=== PATIENT | male | born 1960 | race Caucasian/White ===

== ENCOUNTER 2019-10-13 13:52 | Emergency (ER) | payer SELFPAY ==
--- OUTSIDE RECORDS SUMMARY | 2019-10-13 13:54 | XMS REPORT | Continuity of Care Document ---
:1960 Author Organization [facility] t Address [address] [place] [address] Care Team Providers Name Role Phone Doctor Unassigned, Name Attending Clinician Unavailable Problems This patient has no known problems. Allergies, Adverse Reactions, Alerts This patient has no known allergies or adverse reactions. Medications This patient has no known medications. Procedures This patient has no known procedures. Encounters Start End Encounter Admission Attending Care Care Encounter Source Date/Time Date/Time Type Type Clinicians Facility Department ID 2019-01-06 2019-01-06 Orders Doctor JOSEFINA [id number] 00:00:00 00:00:00 Only UnassELIJAH [facility] [id number] [place] [facility] [id number] Results This patient has no known results.
[2019-10-13] MEDS ORDERED: dexAMETHasone 10 MG/ML VIAL ONE (14:29)
[2019-10-13] MEDS ORDERED: NA CHLORIDE 0.9% 1,000 ML ONE (14:29)
[2019-10-13 14:42] LABS: Absolute Lymphocytes (CBC) 1.5 K/uL (0.7-4.9); Basophils % 0.5 % (0-1.3); Hematocrit 43.4 % (39.6-49.0); Lymphocytes % 22.7 % (15.3-44.8); MPV 8.1 fL (7.6-11.3); RBC Red Blood Cell Count 4.51 M/uL (4.33-5.43)
[2019-10-13 14:43] LABS: Protime INR 0.95
[2019-10-13] MEDS ORDERED: PROMETHAZINE INJ 25 MG/ML AMP ONE (15:08)
[2019-10-13 15:15] LABS: ALT/SGPT 30 U/L (12-78); AST/SGOT 23 U/L (15-37); Alkaline Phosphatase 109 U/L (45-117); BUN Blood Urea Nitrogen 17 mg/dL (7-18); Bicarbonate 24 mmol/L (21-32); Bilirubin Direct 0.1 mg/dL (0-0.2); Bilirubin Total 0.4 mg/dL (0.2-1.0); Glucose Level 128 mg/dL (74-106); Magnesium 2.2 mg/dL (1.8-2.4); NT PRO-BNP 67 pg/mL (<125); Potassium 3.7 mmol/L (3.5-5.1); Protein, Total 7.7 g/dL (6.4-8.2); Sodium Level 142 mmol/L (136-145); Troponin (Emerg Dept Use Only) < 0.02 ng/mL (0.0-0.045)
--- NOTE | 2019-10-13 16:27 | EKG ---
Test Date: 2019-10-13 Test Time: 14:34:28 Sales Consultant: DAVID MEASUREMENT RESULTS: Intervals: Rate: 108 MN: 144 QRSD: 82 QT: 326 QTc: 436 [place]: P: 67 MN: 144 QRS: 84 T: 16 INTERPRETIVE STATEMENTS: Sinus tachycardia Otherwise normal ECG No previous ECG available for comparison Electronically Signed On 10-13-19 16:27:18 CDT by Wes Fisher
--- NOTE | 2019-10-13 16:48 | ER ---
Nurse's Notes [facility] Name: Florentino Matute Age: 59 yrs Sex: Male : 1960 Arrival Date: 10/13/2019 Time: 13:53 Bed 15 Private MD: Diagnosis: Hymenoptra Envenomation;Bitten or stung by nonvenomous insect and other nonvenomous arthropods Presentation: 10/12 14:00 Chief complaint: Patient states: was mowing grass and got stung by a lot of bees all sv over. Reports that he fell mx times trying to get away from the. Coronavirus screen: Proceed with normal triage. Patient denies a cough. Patient denies shortness of breath or difficulty breathing. Patient denies measured and/or subjective temperature greater than 100.4F prior to today's visit. Patient denies travel on a cruise ship or to a country the [facility] currently lists as an affected area. Patient denies contact with known and/or suspected case of COVID-19. Ebola Screen: No symptoms or risks identified at this time. Onset: The symptoms/episode began/occurred suddenly, today. Anaphylaxis evaluation, no signs or symptoms of anaphylaxis were noted. Risk Assessment: Do you want to hurt yourself or someone else? Patient reports no desire to harm self or others. Onset of symptoms was October 13, 2019. 14:00 Method Of Arrival: Wheelchair sv 14:00 Acuity: SAMUEL 2 sv Triage Assessment: 14:02 General: Appears in no apparent distress. uncomfortable, Behavior is cooperative, sv anxious. Pain: Complains of pain in "all over". Neuro: Level of Consciousness is awake, alert, obeys commands, Oriented to person, place, time, situation. Respiratory: Airway is patent Respiratory effort is even, unlabored, Respiratory pattern is tachypnea. Historical: - Allergies: 14:02 No Known Allergies; sv Screenin:25 Abuse screen: Denies threats or abuse. Denies injuries from another. Nutritional bp screening: No deficits noted. Tuberculosis screening: No symptoms or risk factors identified. Fall Risk None identified. Assessment: 14:10 General: SEE TRIAGE NOTE. Respiratory: Airway is patent Breath sounds are clear bp bilaterally. 15:57 Reassessment: Patient appears in no apparent distress at this time. PT SLEEPING. bp Respiratory: Airway is patent. 16:49 Reassessment: PT SLEEPING. Respiratory: Airway is patent Respiratory effort is even, bp unlabored. Vital Signs: 14:00 BP 143 / 100; Pulse 116; Resp 22; Pulse Ox 99% ; sv 14:30 BP 129 / 94; Pulse 108; Resp 16; Pulse Ox 97% ; bp 15:30 BP 171 / 101; Pulse 100; Resp 20; Pulse Ox 100% ; bp 16:30 BP 137 / 87; Pulse 101; Resp 16; Pulse Ox 97% ; bp ED Course: 13:53 Patient arrived in ED. as 13:57 Dejan Humphries, RN is Primary Nurse. bp 14:00 Shalom Mosquera PA is PHCP. [facility] 14:00 Indra Powell MD is Attending Physician. [facility] 14:02 Triage completed. sv 14:02 Arm band placed on. sv 14:25 Patient has correct armband on for positive identification. Bed in low position. Call bp light in reach. Side rails up X2. 14:25 Inserted saline lock: 20 gauge in right forearm, using aseptic technique. Blood bp collected. 15:08 Verbal reassurance given. mb4 Administered Medications: 14:25 Drug: NS 0.9% 1000 ml Route: IV; Rate: 1 bolus; Site: right forearm; bp 14:25 Drug: Decadron - Dexamethasone 10 mg Route: IVP; Site: right forearm; bp 15:03 Drug: Promethazine 12.5 mg Route: IVP; Site: right forearm; ca1 Outcome: 16:47 Discharge ordered by MD. [facility] 17:22 Patient left the ED. aa5 Signatures: Libby Rossi RN RN Shalom Mosquera PA PA Sari Cali Audri, RN RN aa5 Dejan Humphries, RN RN bp Claudia Carver mb4 Jayla Jiménez RN RN ca1
--- NOTE | 2019-10-13 16:48 | EDPHYS ---
Physician Documentation [facility] Name: Florentino Matute Age: 59 yrs Sex: Male : 1960 Arrival Date: 10/13/2019 Time: 13:53 Bed 15 Private MD: ED Physician Indra Powell HPI: 10/12 14:10 This 59 yrs old Male presents to ER via Wheelchair with complaints of Bee jmm Sting. 14:10 by a bee. Onset: The symptoms/episode began/occurred acutely, just prior to arrival. jmm This is a 59 year old male that presents to the ED with complaints of multiple bee stings while mowing a lawn. Denies shortness of breath. Pain is mainly at the head. Denies vomiting. . Historical: - Allergies: 14:02 No Known Allergies; sv ROS: 14:10 Constitutional: Negative for fever, chills, and weight loss, Cardiovascular: Negative [facility] for chest pain, palpitations, and edema, Respiratory: Negative for shortness of breath, cough, wheezing, and pleuritic chest pain, Abdomen/GI: Negative for abdominal pain, nausea, vomiting, diarrhea, and constipation. 14:10 Skin: Positive for insect sting. 14:10 All other systems are negative. Exam: 14:10 Constitutional: This is a well developed, well nourished patient who is awake, alert, jmm and in no acute distress. 14:10 Eyes: EOMI, no conjunctival erythema appreciated ENT: Moist Mucus Membranes Neck: Trachea midline, Supple Chest/axilla: Normal chest wall appearance and motion. Cardiovascular: Regular rate and rhythm. No edema appreciated Respiratory: Normal respirations, no respiratory distress appreciated Abdomen/GI: Non distended, soft Back: Normal ROM Skin: General appearance color normal MS/ Extremity: Moves all extremities, no obvious deformities appreciated, no edema noted to the lower extremities Neuro: Awake and alert, normal gait Psych: Behavior is normal, Mood is normal, Patient is cooperative and pleasant 14:10 Head/face: multiple insect bites noted to the face. 16:45 ECG was reviewed by the Attending Physician. An electrocardiogram was deferred on this [facility] patient Vital Signs: 14:00 BP 143 / 100; Pulse 116; Resp 22; Pulse Ox 99% ; sv 14:30 BP 129 / 94; Pulse 108; Resp 16; Pulse Ox 97% ; bp 15:30 BP 171 / 101; Pulse 100; Resp 20; Pulse Ox 100% ; bp 16:30 BP 137 / 87; Pulse 101; Resp 16; Pulse Ox 97% ; bp MDM: 14:11 Patient medically screened. [facility] 16:46 Data reviewed: vital signs, nurses notes. Counseling: I had a detailed discussion with sheldon the patient and/or guardian regarding: the historical points, exam findings, and any diagnostic results supporting the discharge/admit diagnosis, lab results, radiology results, the need for outpatient follow up, to return to the emergency department if symptoms worsen or persist or if there are any questions or concerns that arise at home. ED course: Patient is alert and non toxic in appearance in the ED. Patient advised to follow up with pcp and otherwise given wound infection return precautions. Patient understood and agrees with the plan of care. . 10/12 14:10 Order name: Basic Metabolic Panel; Complete Time: 15:16 [facility] 10/12 14:10 Order name: CBC with Diff; Complete Time: 14:52 [facility] 10/12 14:10 Order name: LFT's; Complete Time: 15:16 [facility] 10/12 14:10 Order name: Magnesium; Complete Time: 15:16 [facility] 10/12 14:10 Order name: NT PRO-BNP; Complete Time: 15:16 [facility] 10/12 14:10 Order name: PT-INR; Complete Time: 14:52 [facility] 10/12 14:10 Order name: Troponin (emerg Dept Use Only); Complete Time: 15:16 [facility] 10/12 14:10 Order name: EKG; Complete Time: 14:11 [facility] 10/12 14:10 Order name: Cardiac monitoring; Complete Time: 14:24 [facility] 10/12 14:10 Order name: EKG - Nurse/Tech; Complete Time: 14:31 [facility] 10/12 14:10 Order name: IV Saline Lock; Complete Time: 14:24 [facility] 10/12 14:10 Order name: Labs collected and sent; Complete Time: 14:24 [facility] 10/12 14:10 Order name: O2 Per Protocol; Complete Time: 14:24 [facility] 10/12 14:10 Order name: O2 Sat Monitoring; Complete Time: 14:24 [facility] 10/12 14:31 Order name: Wound Care; Complete Time: 16:50 [facility] EC:45 Rate is 108 beats/min. Rhythm is regular. QRS [place] is Normal. DC interval is normal. [facility] QRS interval is normal. QT interval is normal. No Q waves. T waves are Normal. No ST changes noted. Reviewed by me. Administered Medications: 14:25 Drug: NS 0.9% 1000 ml Route: IV; Rate: 1 bolus; Site: right forearm; bp 14:25 Drug: Decadron - Dexamethasone 10 mg Route: IVP; Site: right forearm; bp 15:03 Drug: Promethazine 12.5 mg Route: IVP; Site: right forearm; ca1 Disposition: 10/13 09:09 Co-signature as Attending Physician, Indra Powell MD I agree with the assessment and kdr plan of care. Disposition: 10/13/19 16:47 Discharged to Home. Impression: Hymenoptra Envenomation, Bitten or stung by nonvenomous insect and other nonvenomous arthropods. - Condition is Stable. - Discharge Instructions: Insect Bite. - Medication Reconciliation Form, Thank You Letter, Antibiotic Education, Prescription Opioid Use form. - Follow up: Private Physician; When: 2 - 3 days; Reason: Recheck today's complaints, Continuance of care, Re-evaluation by your physician. Signatures: Dispatcher [employer] Libby York RN Indra Galdamez MD MD kdr Mickail, Joel, PA PA [facility] Kaylene Joseph RN RN aa5 Dejan Humphries RN RN bp Jayla Jiménez RN RN ca1 Corrections: (The following items were deleted from the chart) 10/12 17:22 16:47 10/13/2019 16:47 Discharged to Home. Impression: Hymenoptra Envenomation; Bitten aa5 or stung by nonvenomous insect and other nonvenomous arthropods. Condition is Stable. Forms are Medication Reconciliation Form, Thank You Letter, Antibiotic Education, Prescription Opioid Use. Follow up: Private Physician; When: 2 - 3 days; Reason: Recheck today's complaints, Continuance of care, Re-evaluation by your physician. [facility]
[2019-10-13 17:34] VITALS: BP 137/87; O2SAT 97
== END 2019-10-13 17:22 | disposition home or self-care (01) ==
LOC: ER 13:52
DX: S00.86XA Insect bite (nonvenomous) of other part of head, initial encounter (principal); T63.441A Toxic effect of venom of bees, accidental (unintentional), initial encounter
CPT/HCPCS: 36415; 80048; 80076; 83735; 83880; 84484; 85025; 85610; 93005; 96374; 96375; 99283; J1100; J2550; J7030

== ENCOUNTER 2021-04-16 07:21 | Day surgery (SDC) | payer OTHER ==
[2021-04-11 14:53] LABS: Potassium 3.9 mmol/L (3.5-5.1)
[2021-04-16] MEDS ORDERED: CEFAZOLIN/SWI 2gm 2 GM/20 ML SYR ONE (07:36)
[2021-04-16] MEDS ORDERED: Ringers Lactate 1,000 ML IV ONE ×2 (07:36→09:58)
[2021-04-16] MEDS ORDERED: BUPIVACA 0.5%/EPI 0.0005%/PF 30 ML VIAL ONE (07:59)
[2021-04-16] MEDS ORDERED: ACETAMINOPHEN 500 MG TAB PO ONE (08:10)
[2021-04-16] MEDS ORDERED: CELECOXIB 100 MG CAPSULE PO ONE (08:10)
[2021-04-16] MEDS ORDERED: ACETAMINOPHEN 500 MG TAB ONE (08:11)
[2021-04-16] MEDS ORDERED: CELECOXIB 100 MG CAPSULE ONE (08:11)
[2021-04-16] MEDS ORDERED: LIDOCAINE 1% MPF 5 ML VIAL ONE (08:21)
[2021-04-16] MEDS ORDERED: propofoL 200 MG/20 ML VIAL IV ONE (08:21)
[2021-04-16] MEDS ORDERED: FENTANYL CITR 100 MCG/2 ML ONE (08:21)
[2021-04-16] MEDS ORDERED: MIDAZOLAM HCL 2 MG/2 ML INJ ONE (08:21)
[2021-04-16] MEDS ORDERED: KETOROLAC 30 MG/ML INJ ONE (08:58)
[2021-04-16] MEDS ORDERED: ONDANSETRON 4 MG/2 ML VIAL ONE (08:58)
--- NOTE | 2021-04-16 09:50 | P.OP ---
Preoperative diagnosis: Left recurrent inguinal hernia Postoperative diagnosis: LEFT varicocele Primary procedure: LEFT inguinal exploration Anesthesia: GETA + Local Estimated blood loss: <5cc Specimen: none Findings: Very Large LEFT Vericocele, no hernia defect appreciated Complications: None Transferred to: Recovery Room Condition: Good
[2021-04-16 10:02] VITALS: O2SAT 100
[2021-04-16 10:58] VITALS: BP 133/71; TEMP 97.8
--- NOTE | 2021-04-16 11:06 | OP ---
Date of Procedure: 04/16/2021 Surgeon: Taiwo Montez MD, Preoperative Diagnosis: Left recurrent inguinal hernia. Postoperative Diagnosis: Left varicocele / hydrocele. Procedure Performed: Left inguinal exploration. Anesthesia: General endotracheal plus local with 0.25% Marcaine without epinephrine. Estimated Blood Loss: Less than 5 mL. Specimen: None. Findings: Very large left varicocele hernia defect appreciated. Complications: None. Disposition: The patient was transferred to the recovery room in good condition. Procedure In Detail: After informed consent was obtained, the patient was brought to the operating room prepped and draped in the usual sterile fashion. After adequate anesthesia was achieved, I dissected circumferentially down to the previous inguinal incision down to subcutaneous tissues. Electrocautery was used to dissect down this to the external oblique aponeurosis, which was opened at this point. No hernia was appreciated at this point, but a large varicocele / hydrocele was evident from the scrotum. This appeared to be abutting the inguinal ring, but there was no obvious hernia appreciated on this examination. As such, I opted to close the patient's inguinal incision and irrigate the area copiously. The external oblique aponeurosis was closed with a running 3-0 Vicryl suture and this deep dermal plane was closed using interrupted 3-0 Vicryl suture. The skin was closed with 4-0 Monocryl in running fashion Dermabond placed over top. The patient tolerated the procedure well without evidence of complication and transferred to PACU in good condition. All counts were correct at the end of the case. The patient will be referred to urologist for varicocele repair. GEORGETTE/LIAN Voice ID: [id number] Report ID: [id number] TREE
== END 2021-04-16 11:35 | disposition home or self-care (01) ==
LOC: OR 07:21
PROVIDERS: ATTEND Surgery
PROC: 0WJF0ZZ Inspection of Abdominal Wall, Open Approach (ICD-10-PCS; principal; 2021-04-16 08:30)
DX: N43.3 Hydrocele, unspecified (principal); I86.1 Scrotal varices; Z20.822 Contact with and (suspected) exposure to COVID-19
CPT/HCPCS: 80048; 36415; 49000; U0002; J2704; J2250; J3010; J0690; J7120 ×2; J2405

== ENCOUNTER 2023-04-02 08:01 | Day surgery (SDC) | payer OTHER ==
[~2023-04-02 08:01] MED LIST: PIPER TAZO 3.375 GM in NA CHLORIDE 0.9% 100 ML IV ONE
[2023-04-02] MEDS ORDERED: PIPER TAZO 3.375 GM in NA CHLORIDE 0.9% 100 ML IV ONE (08:15)
[2023-04-02 08:23] VITALS: BP 153/97; TEMP 97.2; O2SAT 100; BMI 22.9
== END 2023-04-02 12:26 | disposition home or self-care (01) ==
LOC: DS 08:01
PROVIDERS: ATTEND Urology
DX: N39.0 Urinary tract infection, site not specified (principal); R97.20 Elevated prostate specific antigen [PSA]
CPT/HCPCS: 96365; 96366; J2543

== ENCOUNTER 2023-04-09 10:54 | Emergency (ER) | payer OTHER ==
--- OUTSIDE RECORDS SUMMARY | 2023-04-09 10:58 | XMS REPORT | Continuity of Care Document ---
:1960 Author Organization [facility] t Address [address] [facility] [place] [address] Care Team Providers Name Role Phone Pcp, Patient Does Not Have A Primary Care Physician [id number] Gaudencio Lamb Attending Clinician Unavailable FELIX THOMAS Attending Clinician Unavailable Felix Thomas MD Attending Clinician Doctor Unassigned, [place] Attending Clinician Unavailable Yessi Hawley MD Attending Clinician YESSI HAWLEY Attending Clinician Unavailable Payers Payer Name Policy Type Policy Number Effective Date Expiration Date [place] [facility] [place] [id number] 2022 00:00:00 [employer] MEDICARE C1 [id number] 2021 Common Sp sanjeev 00:00:00 - [facility] Problems Condition Condition Condition Status Onset Resolution Last Treating Co mments Source Name Details Category Date Date Treatment Clinician Date Non-recurr Non-recurr Disease Active 2018-05 Overview : Univers ent ent 06-02 Formattin ity of unilateral unilateral 00:00: g of this [place] inguinal inguinal 00 note Medica l hernia hernia might be Branch without without different obstructio obstructio from the n or n or original. gangrene gangrene Added automatic ally from request for surgery [id number] Screening Screening Disease Active 2018-05 Overview: Univers for for 05-22 Formattin ity of colorectal colorectal 00:00: g of this [place] cancer cancer note Medical might be Branch different from the original. Added automatic ally from request for surgery [id number] Chronic Chronic Disease Active Univers pain of pain of 6-28 ity of right hip right hip 00:00: Ben salguero [address] [place] [address] [id number] Hypertrigl Problem Co mmon yceridemia [facility] [id number] Enlarged Problem Comm on prostate [facility] Hernia Hernia Problem Common [facility] [id number] Chronic Problem Common obstructiv [facility] e [facility] pulmonary [facility] unspecifie Medica l d COPD Center type [id number] Elevated Problem Comm on PSA [facility] [id number] Scrotal Problem Commo n swelling [facility] [id number] Tobacco Problem Commo n use Spirit disorder, [facility] continuous [facility] [id number] Primary Problem Comm on osteoarthr Spirit itis of [facility] right hip [facility] [id number] Penile Problem Common lesion [facility] [id number] BPH loc w Problem Com mon urin [facility] obs/LUTS [facility] [id number] Chronic Problem Common prostatiti Spirit s [facility] [id number] Left Problem Commo n [id number] inguinal [facility] pain [facility] Scrotal Scrotal Problem Common pain pain [facility] [id number] Left Problem Common hydrocele [facility] Allergies, Adverse Reactions, Alerts Allergy Allergy Status Severity Reaction(s) Onset Inactive Treating Comm ents Source Name Type Date Date Clinician NO KNOWN Drug Active Univers ALLERGIE Class [facility] Social History Social Habit Start Date Stop Date Quantity Comments Source History of Tobacco Current Smoker Co mmon Spirit - Use [facility] Sex Assigned At Common Sp sanjeev - [facility] History [facility] University o f Alcohol Frequency [facility] History [facility] University o f Alcohol Std Drinks [facility] Sexual orientation Univer [facility] Alcohol intake 2023-04-08 2023-04-08 1 /d University of 00:00:00 00:00:00 [facility] History of Social 2019-12-16 2019-12-16 Univers ity of function 00:00:00 00:00:00 [facility] Tobacco use and 2019-04-23 2019-04-23 Smokeless tobacco Un iversity of exposure 00:00:00 00:00:00 non-user [facility] Tobacco Comment 2019-04-23 2019-04-23 Attempting to cut Un iversity of 00:00:00 00:00:00 down. 10-15 [place] Medical cigarettes/day Branch Cigarettes smoked 2019-04-23 2019-04-23 Univers ity of current (pack per 00:00:00 00:00:00 [facility] ) - Reported Branch History SDOH 2019-03-25 2019-03-25 4 University o f Alcohol Binge 00:00:00 00:00:00 [facility] al Branch Alcohol Comment 2018-07-02 2018-07-02 6 beers/week, Univer sity of 00:00:00 00:00:00 says he quit in [place] Med ical apr 2018 Branch Smoking Status Start Date Stop Date Source Current Smoker 2023-01-27 00:00:00 Common Spiri t - [facility] Occasional tobacco smoker 2019-04-23 00:00:00 Un iversity of [facility] Medications Ordered Filled Start Stop Current Ordering Indication Dosage Frequency Signature Comments Components Source Medication Medication Date Date Medication? Clinician (SIG) Name Name tamsulosin 2023-0 Yes Univers 0.4 mg 24 9-24 ity of hr capsule 00:00: [place] [facility] tamsulosin 2023-0 Yes Univers 0.4 mg 24 9-24 ity of hr capsule 00:00: [place] [facility] tamsulosin 2023-0 Yes Univers 0.4 mg 24 9-24 ity of hr capsule 00:00: [place] [facility] tamsulosin 2023-0 Yes Univers 0.4 mg 24 9-24 ity of hr capsule 00:00: [place] [facility] tamsulosin 2023-0 Yes Univers 0.4 mg 24 9-24 ity of hr capsule 00:00: [place] [facility] tamsulosin 2023-0 Yes Univers 0.4 mg 24 9-24 ity of hr capsule 00:00: [place] [facility] tamsulosin 2023-0 Yes Univers 0.4 mg 24 9-24 ity of hr capsule 00:00: Medical Branch tamsulosin 3-0 Yes Univers 0.4 mg 24 02-02 ity of hr capsule 00:00: Medical Branch tamsulosin 3-0 Yes Univers 0.4 mg 24 02-02 ity of hr capsule 00:00: Medical Branch Flomax 0.4 Flomax 0.4 2021-0 2022- No 1{capsu QD Flomax 0.4 MG MG 05-2310 le} MG 00:00: 00:00 00 :00 Flomax 0.4 Flomax 0.4 2021-0 2- No 1{capsu QD Flomax 0.4 MG MG 05-2310 le} MG 00:00: 00:00 00 :00 Flomax 0.4 Flomax 0.4 2021-0 2- No 1{capsu QD MG MG 05-2310 le} 00:00: 00:00 00 :00 Flomax 0.4 Flomax 0.4 2021-0 2- No 1{capsu QD Flomax 0.4 MG MG 05-2310 le} MG 00:00: 00:00 00 :00 Bactrim DS Bactrim DS 2021-0 2021- No 1{table BID 800-160 MG 800-160 MG 05-23 t} 00:00: 00:00 00 :00 acetaminoph 2018-05 Yes [id number] 500mg Take 1 Univers en (TYLENOL 2-17 tablet by ity of EXTRA 00:00: mouth [place] STRENGTH) 00 every 6 Medical 500 mg (six) Branch tablet hours as needed for Pain. ibuprofen 2018-05 Yes [id number] 600mg Take 1 Univers 600 mg 2-17 tablet by ity of tablet 00:00: mouth [place] 00 every 6 Medical (six) Branch hours as needed for Pain (scale 4-6). traMADol 50 2018-05 Yes [id number] 50mg Take 1 Univers mg tablet 2-17 tablet by ity o f 00:00: mouth [place] 00 every 6 Medical (six) Branch hours as needed for Pain (scale 4-6). acetaminoph 2018-05 Yes [id number] 500mg Take 1 Univers en (TYLENOL 2-17 tablet by ity of EXTRA 00:00: mouth [place] STRENGTH) 00 every 6 Medical 500 mg (six) Branch tablet hours as needed for Pain. ibuprofen 2018-05 Yes [id number] 600mg Take 1 Univers 600 mg 2-17 tablet by ity of tablet 00:00: mouth [place] 00 every 6 Medical (six) Branch hours as needed for Pain (scale 4-6). traMADol 50 2018-05 Yes [id number] 50mg Take 1 Univers mg tablet 2-17 tablet by ity o f 00:00: mouth [place] 00 every 6 Medical (six) Branch hours as needed for Pain (scale 4-6). acetaminoph 2018-05 Yes [id number] 500mg Take 1 Univers en (TYLENOL 2-17 tablet by ity of EXTRA 00:00: mouth [place] STRENGTH) 00 every 6 Medical 500 mg (six) Branch tablet hours as needed for Pain. ibuprofen 2018-05 Yes [id number] 600mg Take 1 Univers 600 mg 2-17 tablet by ity of tablet 00:00: mouth [place] 00 every 6 Medical (six) Branch hours as needed for Pain (scale 4-6). traMADol 50 2018-05 Yes [id number] 50mg Take 1 Univers mg tablet 2-17 tablet by ity o f 00:00: mouth [place] 00 every 6 Medical (six) Branch hours as needed for Pain (scale 4-6). acetaminoph 2018-05 Yes [id number] 500mg Take 1 Univers en (TYLENOL 2-17 tablet by ity of EXTRA 00:00: mouth [place] STRENGTH) 00 every 6 Medical 500 mg (six) Branch tablet hours as needed for Pain. ibuprofen 2018-05 Yes [id number] 600mg Take 1 Univers 600 mg 2-17 tablet by ity of tablet 00:00: mouth [place] 00 every 6 Medical (six) Branch hours as needed for Pain (scale 4-6). traMADol 50 2018-05 Yes [id number] 50mg Take 1 Univers mg tablet 2-17 tablet by ity o f 00:00: mouth [place] 00 every 6 Medical (six) Branch hours as needed for Pain (scale 4-6). acetaminoph 2018-05 Yes [id number] 500mg Take 1 Univers en (TYLENOL 2-17 tablet by ity of EXTRA 00:00: mouth [place] STRENGTH) 00 every 6 Medical 500 mg (six) Branch tablet hours as needed for Pain. ibuprofen 2018-05 Yes [id number] 600mg Take 1 Univers 600 mg 2-17 tablet by ity of tablet 00:00: mouth [place] 00 every 6 Medical (six) Branch hours as needed for Pain (scale 4-6). traMADol 50 2018-05 Yes [id number] 50mg Take 1 Univers mg tablet 2-17 tablet by ity o f 00:00: mouth [place] 00 every 6 Medical (six) Branch hours as needed for Pain (scale 4-6). acetaminoph 2018-05 Yes [id number] 500mg Take 1 Univers en (TYLENOL 2-17 tablet by ity of EXTRA 00:00: mouth [place] STRENGTH) 00 every 6 Medical 500 mg (six) Branch tablet hours as needed for Pain. ibuprofen 2018-05 Yes [id number] 600mg Take 1 Univers 600 mg 2-17 tablet by ity of tablet 00:00: mouth [place] 00 every 6 Medical (six) Branch hours as needed for Pain (scale 4-6). traMADol 50 2018-05 Yes [id number] 50mg Take 1 Univers mg tablet 2-17 tablet by ity o f 00:00: mouth [place] 00 every 6 Medical (six) Branch hours as needed for Pain (scale 4-6). acetaminoph 2018-05 Yes [id number] 500mg Take 1 Univers en (TYLENOL 2-17 tablet by ity of EXTRA 00:00: mouth [place] STRENGTH) 00 every 6 Medical 500 mg (six) Branch tablet hours as needed for Pain. ibuprofen 2018-05 Yes [id number] 600mg Take 1 Univers 600 mg 2-17 tablet by ity of tablet 00:00: mouth [place] 00 every 6 Medical (six) Branch hours as needed for Pain (scale 4-6). traMADol 50 2018-05 Yes [id number] 50mg Take 1 Univers mg tablet 2-17 tablet by ity o f 00:00: mouth [place] 00 every 6 Medical (six) Branch hours as needed for Pain (scale 4-6). acetaminoph 2018-05 Yes [id number] 500mg Take 1 Univers en (TYLENOL 2-17 tablet by ity of EXTRA 00:00: mouth [place] STRENGTH) 00 every 6 Medical 500 mg (six) Branch tablet hours as needed for Pain. ibuprofen 2018-05 Yes [id number] 600mg Take 1 Univers 600 mg 2-17 tablet by ity of tablet 00:00: mouth [place] 00 every 6 Medical (six) Branch hours as needed for Pain (scale 4-6). traMADol 50 2018-05 Yes [id number] 50mg Take 1 Univers mg tablet 2-17 tablet by ity o f 00:00: mouth [place] 00 every 6 Medical (six) Branch hours as needed for Pain (scale 4-6). acetaminoph 2018-05 Yes [id number] 500mg Take 1 Univers en (TYLENOL 2-17 tablet by ity of EXTRA 00:00: mouth [place] STRENGTH) 00 every 6 Medical 500 mg (six) Branch tablet hours as needed for Pain. ibuprofen 2018-05 Yes [id number] 600mg Take 1 Univers 600 mg 2-17 tablet by ity of tablet 00:00: mouth [place] 00 every 6 Medical (six) Branch hours as needed for Pain (scale 4-6). traMADol 50 2018-05 Yes [id number] 50mg Take 1 Univers mg tablet 2-17 tablet by ity o f 00:00: mouth [place] 00 every 6 Medical (six) Branch hours as needed for Pain (scale 4-6). acetaminoph 2018-05 Yes [id number] 500mg Take 1 Univers en (TYLENOL 2-17 tablet by ity of EXTRA 00:00: mouth [place] STRENGTH) 00 every 6 Medical 500 mg (six) Branch tablet hours as needed for Pain. ibuprofen 2018-05 Yes [id number] 600mg Take 1 Univers 600 mg 2-17 tablet by ity of tablet 00:00: mouth [place] 00 every 6 Medical (six) Branch hours as needed for Pain (scale 4-6). traMADol 50 2018-05 Yes [id number] 50mg Take 1 Univers mg tablet 2-17 tablet by ity o f 00:00: mouth [place] 00 every 6 Medical (six) Branch hours as needed for Pain (scale 4-6). acetaminoph 2018-05 Yes [id number] 500mg Take 1 Univers en (TYLENOL 2-17 tablet by ity of EXTRA 00:00: mouth [place] STRENGTH) 00 every 6 Medical 500 mg (six) Branch tablet hours as needed for Pain. ibuprofen 2018-05 Yes [id number] 600mg Take 1 Univers 600 mg 2-17 tablet by ity of tablet 00:00: mouth [place] 00 every 6 Medical (six) Branch hours as needed for Pain (scale 4-6). traMADol 50 2018-05 Yes [id number] 50mg Take 1 Univers mg tablet 2-17 tablet by ity o f 00:00: mouth [place] 00 every 6 Medical (six) Branch hours as needed for Pain (scale 4-6). acetaminoph 2019-0 Yes 500mg Take 500 U nivers en (TYLENOL 2-21 mg by ity of EXTRA 15:24: mouth [place] STRENGTH) 21 every 6 Medical 500 mg (six) Branch tablet hours as needed for Pain. Vitamin D2 Vitamin D2 No Vitamin D2 Sulfamethox Sulfamethox No 1{table QD Sulfametho azole-Trime azole-Trime t} xazole-Tri thoprim thoprim methoprim 400-80 MG 400-80 MG 400-80 MG Vitamin C Vitamin C No Vitamin C Tylenol 325 Tylenol 325 No 1{table 6xD Tylenol MG MG t_as_ne 325 MG eded} Vitamin D2 Vitamin D2 No Vitamin D2 Sulfamethox Sulfamethox No 1{table QD Sulfametho azole-Trime azole-Trime t} xazole-Tri thoprim thoprim methoprim 400-80 MG 400-80 MG 400-80 MG Vitamin C Vitamin C No Vitamin C Tylenol 325 Tylenol 325 No 1{table 6xD Tylenol MG MG t_as_ne 325 MG eded} Vitamin C Vitamin C No Vitamin C Tylenol 325 Tylenol 325 No 1{table 6xD Tylenol MG MG t_as_ne 325 MG eded} Vitamin D2 Vitamin D2 No Vitamin D2 Sulfamethox Sulfamethox No 1{table QD Sulfametho azole-Trime azole-Trime t} xazole-Tri thoprim thoprim methoprim 400-80 MG 400-80 MG 400-80 MG Flomax 0.4 Flomax 0.4 No 1{capsu BID Flomax 0.4 MG MG le} MG Tylenol 325 Tylenol 325 No 1{table 6xD Tylenol MG MG t_as_ne 325 MG eded} Vitamin C Vitamin C No Vitamin C Vitamin D2 Vitamin D2 No Vitamin D2 Vitamin C Vitamin C No Vitamin C Vitamin D2 Vitamin D2 No Tylenol 325 Tylenol 325 No 1{table 6xD MG MG t_as_ne eded} Vitamin C Vitamin C No Vitamin D2 Vitamin D2 No Vitamin D2 Sulfamethox Sulfamethox No 1{table QD Sulfametho azole-Trime azole-Trime t} xazole-Tri thoprim thoprim methoprim 400-80 MG 400-80 MG 400-80 MG Vitamin C Vitamin C No Vitamin C Tylenol 325 Tylenol 325 No 1{table 6xD Tylenol MG MG t_as_ne 325 MG eded} Immunizations Ordered Filled Immunization Date Status Comments Sour e Immunization Name Name Boostrix (Tdap) Boostrix (Tdap) 2021-06-18 Completed Comm on Spirit 15:32:00 [facility] Pneumovax (PPSV23) Pneumovax (PPSV23) 2021-06-18 Completed Common [facility] 15:32:00 [facility] Boostrix (Tdap) Boostrix (Tdap) 2021-06-18 Completed Comm on [facility] 15:32:00 [facility] Pneumovax (PPSV23) Pneumovax (PPSV23) 2021-06-18 Completed Common [facility] 15:32:00 [facility] Boostrix (Tdap) Boostrix (Tdap) 2021-06-18 Completed Comm on [facility] 15:32:00 [facility] Pneumovax (PPSV23) Pneumovax (PPSV23) 2021-06-18 Completed Common [facility] 15:32:00 [facility] Boostrix (Tdap) Boostrix (Tdap) 2021-06-18 Completed Comm on [facility] 15:32:00 [facility] Pneumovax (PPSV23) Pneumovax (PPSV23) 2021-06-18 Completed Common [facility] 15:32:00 - [facility] Afluria Afluria 2021-02-14 Completed Common [facility] 14:24:00 [facility] Afluria Afluria 2021-02-14 Completed Common [facility] 14:24:00 [facility] Afluria Afluria 2021-02-14 Completed Common [facility] 14:24:00 [facility] Afluria Afluria 2021-02-14 Completed Common [facility] 14:24:00 [facility] Afluria Afluria 2021-02-14 Completed Common [facility] 14:24:00 [facility] Afluria Afluria 2021-02-14 Completed Common [facility] 14:24:00 [facility] Afluria Afluria Unknown Completed Common [facility] - [facility] Boostrix (Tdap) Boostrix (Tdap) Unknown Completed Comm on [facility] Pneumovax (PPSV23) Pneumovax (PPSV23) Unknown Completed Common [facility] Vital Signs Vital Name Observation Time Observation Value Comments Source Systolic blood 2023-04-08 18:59:00 127 mm[Hg] Univer sity of pressure [facility] Diastolic blood 2023-04-08 18:59:00 78 mm[Hg] Unive rsity of pressure [facility] Heart rate 2023-04-08 18:59:00 81 /min Universi ty of [place] [facility] [place] Body temperature 2023-04-08 18:59:00 37.22 [place] Univ ersity of [facility] Respiratory rate 2023-04-08 18:59:00 18 /min Univ ersity of [place] [facility] [place] Oxygen saturation in 2023-04-08 18:59:00 99 /min [facility] Arterial blood by [facility] Pulse oximetry Branch Body height 2023-04-08 18:57:00 165.1 cm Universi ty of [place] [facility] Body weight 2023-04-08 18:57:00 63.504 kg Universi ty of [place] [facility] BMI 2023-04-08 18:57:00 23.30 kg/m2 Universi ty of [place] [facility] Systolic blood 2023-02-03 18:14:00 133 mm[Hg] Univer sity of pressure [facility] Diastolic blood 2023-02-03 18:14:00 83 mm[Hg] Unive rsity of pressure [facility] Heart rate 2023-02-03 18:14:00 86 /min Universi ty of [place] [facility] Body temperature 2023-02-03 18:14:00 36.78 [place] Univ ersity of [place] [facility] Respiratory rate 2023-02-03 18:14:00 18 /min Univ ersity of [place] [facility] Body height 2023-02-03 18:14:00 165.1 cm Universi ty of [place] [facility] Body weight 2023-02-03 18:14:00 61.236 kg Universi ty of [place] [facility] BMI 2023-02-03 18:14:00 22.47 kg/m2 Universi ty of [place] [facility] Oxygen saturation in 2023-02-03 18:14:00 98 /min University of Arterial blood by [facility] Pulse oximetry Branch weight 2021-06-18 15:10:00 142.3 [lb_av] Common [facility] temperature 2021-06-18 15:10:00 98.4 [degF] Common [facility] bmi 2021-06-18 15:10:00 23.68 kg/m2 Common [facility] oximetry 2021-06-18 15:10:00 98 % [facility] respiratory rate 2021-06-18 15:10:00 18 /min Comm on [facility] blood pressure 2021-06-18 15:10:00 132 mm[Hg] Common [facility] - systolic [facility] blood pressure 2021-06-18 15:10:00 75 mm[Hg] Common [facility] - diastolic [facility] height 2021-06-18 15:10:00 65 [in_i] Common [facility] height 2021-05-23 17:15:00 65 [in_i] Common [facility] weight 2021-05-23 17:15:00 140.8 [lb_av] Common [facility] temperature 2021-05-23 17:15:00 98.7 [degF] [facility] bmi 2021-05-23 17:15:00 23.43 kg/m2 Common [facility] oximetry 2021-05-23 17:15:00 99 % Common [facility] respiratory rate 2021-05-23 17:15:00 18 /min Comm on [facility] blood pressure 2021-05-23 17:15:00 132 mm[Hg] Common [facility] - systolic [facility] blood pressure 2021-05-23 17:15:00 68 mm[Hg] Common [facility] - diastolic [facility] height 2021-02-14 13:30:00 65 [in_i] Common [facility] weight 2021-02-14 13:30:00 144.6 [lb_av] Common [facility] temperature 2021-02-14 13:30:00 97.6 [degF] Common [facility] bmi 2021-02-14 13:30:00 24.06 kg/m2 Common [facility] oximetry 2021-02-14 13:30:00 97 % Common [facility] respiratory rate 2021-02-14 13:30:00 17 /min Comm on [facility] blood pressure 2021-02-14 13:30:00 134 mm[Hg] Common [facility] systolic [facility] blood pressure 2021-02-14 13:30:00 67 mm[Hg] Common [facility] diastolic [facility] Procedures Procedure Date / Time Performing Clinician Source Performed SARAI,POST-VOID 2023-04-08 00:00:00 Felix Thomas [place] o f [place] RES,US,NON-IMAGING Medical Bran h POCT URINALYSIS AUTO 2023-04-08 00:00:00 Felix Thomas [facility] Medical Branch EXTERNAL PROVIDER RECORDS 2023-02-10 05:01:00 Doctor Andrea, [facility] [place] [facility] REFERRAL- 2023-01-30 05:01:00 Doctor Unassallen, [facility] REQUEST/RESPONSE [place] [facility] REFERRAL- 2021-04-18 06:01:00 Doctor Andrea, [facility] REQUEST/RESPONSE [place] [facility] OP CORRESPONDENCE 2019-01-06 05:01:00 [facility] [place] [facility] Encounters Start End Encounter Admission Attending Care Care Encounter Source Date/Time Date/Time Type Type Clinicians Facility Department ID 2023-02-18 Outpatient Lamb, STLMLC STLC [id number] Common 13:27:00 [facility] [address] [facility] 2022-12-25 Outpatient Lamb, STLMLC STLMLC [id number] Common 11:09:00 [facility] [address] [facility] 2022-12-23 Outpatient Lamb, STLMLC STLMLC [id number] Common 14:04:00 Gaudencio [address] [facility] 2022-11-04 Outpatient Lamb, STLMLC STLMLC [id number] Common 09:08:01 Gaudencio [address]5783 [facility] 2022-10-31 Outpatient Lamb, STLMLC STLC [id number] Common 08:40:01 Gaudencio 84473 [facility] 2022-09-05 Outpatient Lamb, STLMLC STLMLC [id number] Common 13:59:00 Gaudencio [address] [facility] 2022-08-05 Outpatient Lamb, STLMLC STLMLC [id number] Common 10:11:02 Gaudencio [address]2857 [facility] 2021-09-18 Outpatient Lamb, STLMLC STLC [id number] Common 15:39:02 Gaudencio [facility] 2021-07-16 Outpatient Lamb, STLMLC STLC [id number] Common 16:26:01 Gaudencio [facility] 2021-06-06 Outpatient Lamb, STLMLC STLC [id number] Common 14:34:45 Gaudencio [facility] 2021-06-06 Outpatient Lamb, STLMLC STLC [id number] Common 14:07:44 Gaudencio 375[address] [facility] 2021-06-06 Outpatient Lamb, STLMLC STLMLC [id number] Common 13:59:32 Gaudencio 19451 [facility] 2021-06-06 Outpatient Lamb, STLMLC STLC [id number] Common 13:58:12 Gaudencio [facility] 2021-06-06 Outpatient Lamb, STLMLC STLC [id number] Common 13:57:44 Gaudencio 311[address] [facility] 2023-04-08 2023-04-08 Outpatient R MARTHA, [facility] [id number] Univers 13:00:00 13:36:45 FELIX king [facility] 2023-04-08 2023-04-08 Office [facility] [id number] Univers 13:00:00 13:36:45 Visit Felix TARIQ [id number] it y of [place] [id number] [facility] 204 Branch 2023-02-10 2023-02-10 Orders Doctor ROCHA [id number] Univers 00:00:00 00:00:00 Only Unassigned, ELIJAH [id number] ity of [place] [facility] [id number] [place] as [id number] [facility] 009 Branch 2023-02-10 2023-02-10 Telephone [facility] [id number] Univers 00:00:00 00:00:00 Yessi CABRERA [id number] i ty of [place] [id number] [place] [address] 2023-02-06 2023-02-06 Telephone [facility] [id number] Univers 00:00:00 00:00:00 Yessi CABRERA [id number] i ty of [place] [id number] [place] [address] 2023-02-03 2023-02-03 Outpatient R [facility] [id number] Univers 13:00:00 13:40:43 YESSI christine of [facility] 2023-02-03 2023-02-03 Office [facility] [id number] Univers 13:00:00 13:40:43 Visit Yessi CABRERA [id number] i ty [facility] [id number] [id number] [place] dical NAL [address] [place] [id number] 2023-01-30 2023-01-30 Orders Doctor ROCHA [id number] [employer] 00:00:00 00:00:00 Only Unassigned, ELIJAH [id number] ity of [place] [facility] [id number] [place] as [phone] [place] [address] [address] 2022-07-26 2022-07-26 (TEL) STLMLC STLMLC [id number] Co mmon 00:00:00 00:00:00 [facility] 2021-09-26 2021-09-26 (TEL) STLMLC STLMLC [id number] Co mmon 00:00:00 00:00:00 [facility] 2021-06-26 2021-06-26 (TEL) STLMLC STLMLC [id number] Co mmon 00:00:00 00:00:00 [facility] 2021-06-18 2021-06-18 PREV VISIT STLMLC STLMLC [id number] Common 00:00:00 00:00:00 EST AGE [facility] 40-64 - [facility] 2021-05-23 2021-05-23 OFFICE STLMLC STLMLC [id number] Co mmon 00:00:00 00:00:00 VISIT NEW Spir it PT LEVEL 5 - [facility] 2021-04-25 2021-04-25 (TEL) STLMLC STLMLC [id number] Co mmon 00:00:00 00:00:00 [facility] 2021-04-18 2021-04-18 Orders Doctor JOSEFINA [id number] [place] [address] 00:00:00 00:00:00 Only Unassigned, ELIJAH [id number] ity of [place] [facility] 4.2.7.2.686 [place] [phone] [place] [address] [address] 2021-02-14 2021-02-14 OFFICE STLMLC STLMLC [id number] Co mmon 00:00:00 00:00:00 VISIT NEW Spir it PT LEVEL 3 - [facility] 2019-01-06 2019-01-06 Orders Doctor JOSEFINA [id number] 00:00:00 00:00:00 Only Unassigned, ELIJAH [id number] [place] [facility] [id number] [phone] [id number] 2019-01-06 2019-01-06 Orders Doctor JOSEFINA [id number] 00:00:00 00:00:00 Only Unassigned, ELIJAH 350.1.13.10 ity of [place] [facility] [id number] [place] as [phone] [facility] [address] Results Test Description Test Time Test Comments Results Result Comments Source POCT URINALYSIS, INSTRUMENT 2023-04-08 19:05:00 Test Item Value Reference Range Interpretation Comme nts POCT U SP GRAV (test code = 3255) 1.025 mg/dl 1.005-1.025 POCT PH U (test code = 3254) 6.0 mg/dl 5-8 POCT U LEUK EST (test code = 3263) trace Negative - Negative POCT U NIT (test code = 3262) negative Negative - Negative POCT U PROT (test code = 3259) negative Negative - Negative POCT U GLU (test code = 3256) negative Negative - Negative POCT U KETONE (test code = 3258) negative Negative - Negative POCT U UROBILI (test code = 3260) 0.2 mg/dl 0.2-1 POCT U BILI (test code = 3261) negative Negative - Negative POCT U BLD (test code = 3257) trace-intact Negative - Negative POCT U COLOR (test code = 3266) yellow POCT U APPEAR (test code = 3267) clear [facility] URINALYSIS, [id number] 19:05:00 Test Item Value Reference Range Interpretation Comments POCT U SP GRAV (test code = 1.025 mg/dl 1.005-1.025 3255) POCT PH U (test code = 3254) 6.0 mg/dl 5-8 POCT U LEUK EST (test code = trace Negative - Negative 3263) POCT U NIT (test code = negative Negative - Negative 3262) POCT U PROT (test code = negative Negative - Negative 3259) POCT U GLU (test code = negative Negative - Negative 3256) POCT U KETONE (test code = negative Negative - Negative 3258) POCT U UROBILI (test code = 0.2 mg/dl 0.2-1 3260) POCT U BILI (test code = negative Negative - Negative 3261) POCT U BLD (test code = trace-intact Negative - Negative 3257) POCT U COLOR (test code = yellow 3266) POCT U APPEAR (test code = clear 3267) [facility],POST-VOID RES,US,[id number] 00:00:00 Test Item Value Reference Range Interpretation Comments PVR (URINE VOLUME) (test code = 5193) 0 ml 0-100 [facility],POST-VOID RES,US,[id number] 00:00:00 Test Item Value Reference Range Interpretation Comments PVR (URINE VOLUME) (test code = 5193) 0 ml 0-100 [facility] LDL/HDL [id number] 00:00:00 Test Item Value Reference Range Interpretation Comments Cholesterol, Total (test code = 2093-3) 177 100-199 Triglycerides (test code = 2571-8) 269 0-149 HDL Cholesterol (test code = 2085-9) 53 >39 Hepatitis Panel (4)2021-06-18 00:00:00 Test Item Value Reference Range Interpretation Comments Hep A Ab, IgM (test code = 43729-4) Negative Negative HBsAg Screen (test code = 5196-1) Negative Negative Hep B Core Ab, IgM (test code = Negative Negative 86105-1) UA/M w/rflx Culture, [id number] 00:00:00 Test Item Value Reference Range Interpretation Comments Specific [place] (test code = 1.022 1.005-1.030 2965-2) pH (test code = 5803-2) 5.5 5.0-7.5 Urine-Color (test code = 5778-6) Yellow Yellow Appearance (test code = 5767-9) Clear Clear WBC Esterase (test code = 5799-2) Negative Negative Protein (test code = 42250-2) Negative Negative/Trace Glucose (test code = 2349-9) Negative Negative Ketones (test code = 2514-8) Negative Negative Occult Blood (test code = 5794-3) Negative Negative Bilirubin (test code = 5770-3) Negative Negative Urobilinogen,Semi-Qn (test code = 0.2 0.2-1.0 63508-4) Nitrite, Urine (test code = Negative Negative 5802-4) Microscopic Examination (test code See below: = 52576-8) Urinalysis Reflex (test code = UNLOINC) Prostate-Specific Ag, [id number] 00:00:00 Test Item Value Reference Range Interpretation Comments Prostate Specific Ag (test code = 3.1 0.0-4.0 2857-1) Hemoglobin [id number] 00:00:00 Test Item Value Reference Range Interpretation Comments Hemoglobin A1c (test code = 4548-4) 5.4 4.8-5.6 Comp. Metabolic Panel (14) (CMP)2021-06-18 00:00:00 Test Item Value Reference Range Interpretation Comments Glucose (test code = 2345-7) 88 65-99 BUN (test code = 3094-0) 17 6-24 Creatinine (test code = 2160-0) 1.10 0.76-1.27 eGFR If NonAfricn Am (test code = 73 >59 74344-8) eGFR If Africn Am (test code = 40181-1) 84 >59 BUN/Creatinine Ratio (test code = 15 9-20 3097-3) Sodium (test code = 2951-2) 139 134-144 Potassium (test code = 2823-3) 5.2 3.5-5.2 Chloride (test code = 2075-0) 104 96-106 Carbon Dioxide, Total (test code = 25 -2027-) Calcium (test code = 64185-2) 9.5 8.7-10.2 Protein, Total (test code = 2885-2) 7.0 6.0-8.5 Albumin (test code = 1751-7) 4.3 3.8-4.9 Globulin, Total (test code = 57145-2) 2.7 1.5-4.5 A/G Ratio (test code = 1759-0) 1.6 1.2-2.2 Bilirubin, Total (test code = 1974-2) <0.2 0.0-1.2 Alkaline Phosphatase (test code = 99 44-121 6768-6) AST (SGOT) (test code = 1920-8) 21 0-40 ALT (SGPT) (test code = 1742-6) 22 0-44 Uric Acid, [id number] 00:00:00 Test Item Value Reference Range Interpretation Comments Uric Acid (test code = 3084-1) 5.5 3.8-8.4 CBC With Differential/[id number] 00:00:00 Test Item Value Reference Range Interpretation Comments WBC (test code = 6690-2) 6.5 3.4-10.8 RBC (test code = 789-8) 4.27 4.14-5.80 Hemoglobin (test code = 718-7) 14.6 13.0-17.7 Hematocrit (test code = 4544-3) 40.9 37.5-51.0 MCV (test code = 787-2) 96 79-97 MCH (test code = 785-6) 34.2 26.6-33.0 MCHC (test code = 786-4) 35.7 31.5-35.7 RDW (test code = 788-0) 11.9 11.6-15.4 Platelets (test code = 777-3) 277 150-450 Neutrophils (test code = 770-8) 56 Not Estab. Lymphs (test code = 736-9) 29 Not Estab. Monocytes (test code = 5905-5) 8 Not Estab. Eos (test code = 713-8) 6 Not Estab. Basos (test code = 706-2) 1 Not Estab. Immature Cells (test code = UNLOINC) Neutrophils (Absolute) (test code = 3.6 1.4-7.0 751-8) Lymphs (Absolute) (test code = 731-0) 1.9 0.7-3.1 Monocytes(Absolute) (test code = 742-7) 0.5 0.1-0.9 Eos (Absolute) (test code = 711-2) 0.4 0.0-0.4 Baso (Absolute) (test code = 704-7) 0.0 0.0-0.2 Immature Granulocytes (test code = 0 Not Estab. 05281-1) Immature Grans (Abs) (test code = 0.0 0.0-0.1 43941-9) NRBC (test code = 75154-3) Hematology Comments: (test code = 52836-0) TSH reflex to [id number] 00:00:00 Test Item Value Reference Range Interpretation Comments TSH (test code = 39394-6) 2.940 0.450-4.500
[2023-04-09 11:39] LABS: Specific Gravity 1.022 (1.005-1.030); Urine Bacteria None Seen /HPF (<20); Urine Bilirubin NEGATIVE (Negative); Urine Blood Trace (Negative); Urine Clarity Clear (Clear); Urine Color Light-Yellow (Yellow); Urine Crystals Unidentified Few /HPF (None Seen); Urine Glucose NEGATIVE (Negative); Urine Mucus Slight /HPF (None Seen); Urine Protein NEGATIVE (Negative); Urine RBC <5 /HPF (None Seen); Urine Urobilinogen Normal (Normal)
[2023-04-09] MEDS ORDERED: ONDANSETRON 4 MG/2 ML VIAL ONE (12:02)
[2023-04-09] MEDS ORDERED: Levofloxacin500mg IV 500 MG/100 ML BAG IV ONE (12:02)
[2023-04-09] MEDS ORDERED: MORPHINE 4 MG/ML SYR ONE (12:02)
--- NOTE | 2023-04-09 12:10 | RAD REPORT ---
EXAM DESCRIPTION: US - Scrotum Testicles - 04/09/2023 11:44 am CLINICAL HISTORY: Testicular pain and swelling COMPARISON: December 2022 FINDINGS: Prominent scrotal skin and subcutaneous edema. Right testicle measures 3.8 x 2.7 x 2.1 centimeters. Echotexture is homogeneous. Mildly increased blo od flow right testicle and right epididymis. Left testicle measures 4 x 2.1 x 2.5 centimeters. Echotexture is homogeneous. Normal blood flow Left epididymis demonstrates normal blood flow Moderate to large left hydrocele diminished in size from prior exam IMPRESSION: Marked scrotal skin subcutaneous edema Mildly increased blood flow right testicle and right epididymis may indicate inflammation Moderate to large left hydrocele
[2023-04-09 12:18] LABS: Absolute Lymphocytes (CBC) 1.4 K/uL (0.7-4.9); Hematocrit 41.8 % (39.6-49.0); Lymphocytes % 21.8 % (15.3-44.8); MCV 98.8 fL (80-100); MPV 7.3 fL (7.6-11.3); Platelets 226 thou/uL (152-406); Protime INR 0.98; RBC Red Blood Cell Count 4.23 M/uL (4.33-5.43)
[2023-04-09 12:34] LABS: ALT/SGPT 19 U/L (16-61); AST/SGOT 15 U/L (15-37); Albumin 3.5 g/dL (3.4-5.0); Alkaline Phosphatase 119 U/L (45-117); BUN Blood Urea Nitrogen 16 mg/dL (7-18); Bicarbonate 25 mEq/L (21-32); Bilirubin Total 0.3 mg/dL (0.2-1.0); Glomerular Filtration Rate 80 ml/min (=/>90); Glucose Level 94 mg/dL (74-106); Lipase 21 U/L (13-75); Magnesium 2.1 mg/dL (1.6-2.4); NT PRO-BNP 44 pg/mL (<125); Potassium 4.3 mEq/L (3.5-5.1); Protein, Total 7.1 g/dL (6.4-8.2); Sodium Level 137 mEq/L (136-145); Troponin High Sensitivity 6.1 pg/mL (<58.9)
--- NOTE | 2023-04-09 12:34 | RAD REPORT ---
[facility]29 [facility] CLINICAL HISTORY: COUGH COMPARISON: Lung Cancer Screening CT W/O dated 06/25/2021 TECHNIQUE: Portable AP view of the chest. FINDINGS: The lungs are clear. Calcified pleural plaque on the left, stable. No pneumothorax or eff usion. The cardiomediastinal contours are unremarkable. IMPRESSION: No acute cardiopulmonary process.
[2023-04-09 12:35] LABS: Bilirubin Direct < 0.1 mg/dL (0-0.2); Bilirubin Indirect, Calculated ND mg/dL (0.2-0.8)
[2023-04-09] MEDS ORDERED: CEFTRIAXONE 1000 MG/VIAL ONE (13:42)
[2023-04-09] MEDS ORDERED: NA CHLORIDE 0.9% 50 ML ONE (13:42)
--- NOTE | 2023-04-09 13:42 | RAD REPORT ---
EXAM DESCRIPTION: CT - Abdomen Pelvis W Contrast - 04/09/2023 12:53 pm CLINICAL HISTORY: Abd pain;Hernia COMPARISON: CT ABD PELVIS W CONTRAST dated 07/04/2007; Abdomen Pelvis Wo Contrast dated 03/30/2021 T ABD PELVIS W CONTRAST dated 07/04/2007; Abdomen Pelvis Wo Contrast dated 03/30/2021 TECHNIQUE: Thin cut axial CT imaging of the abdomen and pelvis was performed following intravenous a dministration of 100 mL Isovue 300. Multiplanar reformats were generated and reviewed. All CT scans are performed using dose optimization technique as appropriate and may include automated exposure control or mA/KV adjustment according to patient size. FINDINGS: No suspicious findings in the lung bases. The liver, spleen, adrenal glands, and pancreas show no suspicious findings. Gallbladder and biliary tree are also without suspicious finding. Symmetric renal function is seen with no hydronephrosis or suspicious renal mass. No dilated bowel loops or bowel wall thickening. No free air, free fluid or inflammatory stranding. N o hernia, mass or bulky lymphadenopathy. The urinary bladder is without significant finding. No suspicious bony findings. 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 Moderate-sized hydrocele on the left, with thickening and hyperenhancement along the tunica vaginalis of the left. Subcutaneous soft tissue swelling and skin thickening along the scrotum and base of the penis extending along the lower anterior abdominal wall. IMPRESSION: Left moderate-sized hydrocele with thickening and hyperenhancement of the tunica vaginal is, suggesting superimposed infection. Please correlate clinically. The findings were communicated to Feroz Melvin on 04/09/2023 at 13:37 hours.
--- NOTE | 2023-04-09 14:02 | ER ---
Nurse's Notes [facility] [place], [place] Name: Florentino Matute Age: 62 yrs Sex: Male : 1960 Arrival Date: 04/09/2023 Time: 10:54 Bed 7 Private MD: Diagnosis: Epididymo-orchitis;Hydrocele, unspecified;Edema, unspecified;UTI/ Urinary tract infection, site not specified Presentation: 04/09 11:10 Chief complaint: Patient states: swelling to scrotum and penis since this morning, pt aa5 also reports burning sensation to genital area. Pt reports he is under the care of Urology, Dr. Storey. Pt denies any difficulty voiding. Coronavirus screen: At this time, the client does not indicate any symptoms associated with coronavirus-19. Ebola Screen: Patient denies travel to an Ebola-affected area in the 21 days before illness onset. Initial Sepsis Screen: Does the patient meet any 2 criteria? No. Patient's initial sepsis screen is negative. Does the patient have a suspected source of infection? No. Patient's initial sepsis screen is negative. Risk Assessment: Do you want to hurt yourself or someone else? Patient reports no desire to harm self or others. Onset of symptoms was April 09, 2023. 11:10 Acuity: SAMUEL 3 aa5 11:10 Method Of Arrival: Ambulatory aa5 Historical: - Allergies: 11:12 No Known Allergies; aa5 - PMHx: 11:12 Right hip problem; aa5 - PSHx: 11:12 Right hip with screws; aa5 - Immunization history:: Adult Immunizations unknown. - Social history:: Smoking status: Patient reports the use of cigarette tobacco products. Screenin:58 [facility] ED Fall Risk Assessment (Adult) History of falling in the last 3 months, mb9 including since admission No falls in past 3 months (0 pts) Confusion or Disorientation No (0 pts) Intoxicated or Sedated No (0 pts) Impaired Gait No (0 pts) Mobility Assist Device Used No (0 pt) Altered Elimination No (0 pt) Score/Fall Risk Level 0 - 2 = Low Risk Oriented to surroundings, Maintained a safe environment, Educated pt \T\ family on fall prevention, incl call for assistance when getting out of bed. Abuse screen: Denies threats or abuse. Nutritional screening: No deficits noted. Tuberculosis screening: No symptoms or risk factors identified. Assessment: 12:00 Reassessment: Patient appears in no apparent distress at this time. Patient and/or db family updated on plan of care and expected duration. Pain level reassessed. Patient is alert, oriented x 3, equal unlabored respirations, skin warm/dry/pink. 12:04 Reassessment: Patient and/or family updated on plan of care and expected duration. Pain ll1 level reassessed. 12:30 General: Appears in no apparent distress. comfortable, Behavior is calm, cooperative. db Pain: Complains of pain in scrotum and pelvis and groin. Neuro: Level of Consciousness is awake, alert, obeys commands, Oriented to person, place, time, situation. 12:48 Reassessment: PT TO CT. db 14:00 Reassessment: Patient appears in no apparent distress at this time. Patient and/or db family updated on plan of care and expected duration. Pain level reassessed. Patient is alert, oriented x 3, equal unlabored respirations, skin warm/dry/pink. General: Appears in no apparent distress. comfortable, Behavior is calm, cooperative. Neuro: Level of Consciousness is awake, alert, obeys commands, Oriented to person, place, time, situation. Vital Signs: 11:10 BP 155 / 98; Pulse 76; Resp 16 S; Temp 97.5(TE); Pulse Ox 100% on R/A; Weight 63.5 kg aa5 (R); Height 5 ft. 5 in. (R); 12:37 BP 116 / 77; Pulse 70; Resp 16; Pulse Ox 100% on R/A; db 13:00 BP 130 / 84; Pulse 82; Resp 16; Pulse Ox 100% on R/A; db 14:00 BP 134 / 82; Pulse 73; Resp 16; Pulse Ox 100% on R/A; db 11:10 Body Mass Index 23.30 (63.50 kg, 165.1 cm) aa5 ED Course: 10:57 Patient arrived in ED. mg5 10:58 Wilfrid Smith MD is Attending Physician. ana paula 11:10 Arm band placed on. aa5 11:12 Triage completed. aa5 11:35 Kinsey Snyder, TRAE is Primary Nurse. db 11:37 Patient placed in an exam room, on a stretcher. ll1 11:38 Urinalysis w/ reflexes Sent. ll1 11:46 Scrotum Testicles US In Process Unspecified. EDMS 11:58 EKG done, by ED staff, reviewed by Wilfrid Smith MD. mb9 11:59 Placed in gown. Bed in low position. Call light in reach. Side rails up X 1. Client mb9 placed on continuous cardiac and pulse oximetry monitoring. NIBP monitoring applied. Door closed. Noise minimized. Warm blanket given. 11:59 Inserted saline lock: 22 gauge in left forearm, using aseptic technique. mb9 12:31 XRAY Chest (1 view) In Process Unspecified. EDMS 12:56 CT Abd/Pelvis - IV Contrast Only In Process Unspecified. EDMS 14:01 Yonathan Storey MD is Referral Physician[facility] 14:20 Provided Education on: DISCHARGE. db 14:20 No provider procedures requiring assistance completed. IV discontinued, intact, db bleeding controlled, No redness/swelling at site. Administered Medications: 12:04 Drug: morphine IVP or IV 4 mg IVP once over 4 mins {Note: Pain 4/10 RASS 0.} Route: ll1 IVP; Infused Over: 4 mins; Site: left forearm; 13:33 Follow up: Response: No adverse reaction db 12:04 Drug: Ondansetron IVP 4 mg IVP once; over 2 minutes Route: IVP; Site: left forearm; ll1 13:33 Follow up: Response: No adverse reaction db 12:04 Drug: levofloxacin IVPB 500 mg 100 ml IVPB once over 60 mins Volume: 100 ml; Route: ll1 IVPB; Infused Over: 60 mins; Site: left forearm; 13:05 Follow up: Response: No adverse reaction; IV Status: Completed infusion; IV Intake: db 100ml 13:27 Drug: Rocephin IV 1 grams IV at per protocol once; Given slow IV push per pharmacy db instructions Route: IV; Rate: per protocol; Site: left antecubital; 13:45 Follow up: Response: No adverse reaction; IV Status: Completed infusion; IV Intake: 50mldb 13:53 CANCELLED (Duplicate Order): trimethoprim-sulfamethoxazole(160 mg-800 mg (ds) 1 tablet ana paula PO once 13:56 Drug: AZITHromycin PO 1 grams PO once Route: PO; db 14:11 Follow up: Response: No adverse reaction db Medication: 11:58 VIS not applicable for this client. mb9 Intake: 13:05 IV: 100ml; Total: 100ml. db 13:45 IV: 50ml; Total: 150ml. db Outcome: 14:01 Discharge ordered by . ana paula 14:20 Discharged to home ambulatory, db 14:20 Condition: stable 14:20 Discharge instructions given to patient, Instructed on discharge instructions, follow up and referral plans. Prescriptions given X 4, 14:24 Patient left the ED. db Signatures: Dispatcher [employer] EDWilfrid Bowie MD MD cha Calderon, Audri, RN RN aa5 Jacey Correia RN RN ll1 Kinsey Snyder RN RN Monserrat Pike RN RN mb9 India Beard mg5
--- NOTE | 2023-04-09 14:02 | EDPHYS ---
Physician Documentation [facility] Name: Florentino Matute Age: 62 yrs Sex: Male : 1960 Arrival Date: 04/09/2023 Time: 10:54 Bed 7 Private MD: Wilfrid Cain HPI: 04/09 12:12 This 62 yrs old Male presents to ER via Ambulatory with complaints of Penile ana paula Problem - Fluid Build Up. 12:12 The patient presents with swelling, tenderness. Onset: The symptoms/episode ana paula began/occurred 2 day(s) ago. Modifying factors: The symptoms are alleviated by nothing, the symptoms are aggravated by nothing. Associated signs and symptoms: The patient has no apparent associated signs or symptoms. Severity of symptoms: At their worst the symptoms were moderate, in the emergency department the symptoms are unchanged. The patient has experienced similar episodes in the past, several times. Historical: - Allergies: 11:12 No Known Allergies; aa5 - PMHx: 11:12 Right hip problem; aa5 - PSHx: 11:12 Right hip with screws; aa5 - Immunization history:: Adult Immunizations unknown. - Social history:: Smoking status: Patient reports the use of cigarette tobacco products. ROS: 12:14 Constitutional: Negative for fever, chills, and weight loss, Eyes: Negative for injury, ana paula pain, redness, and discharge, ENT: Negative for injury, pain, and discharge, Neck: Negative for injury, pain, and swelling, Cardiovascular: Negative for chest pain, palpitations, and edema, Respiratory: Negative for shortness of breath, cough, wheezing, and pleuritic chest pain, Back: Negative for injury and pain, MS/Extremity: Negative for injury and deformity, Skin: Negative for injury, rash, and discoloration, Neuro: Negative for headache, weakness, numbness, tingling, and seizure, Psych: Negative for depression, anxiety, suicide ideation, homicidal ideation, and hallucinations, Allergy/Immunology: Negative for hives, rash, and allergies, Endocrine: Negative for neck swelling, polydipsia, polyuria, polyphagia, and marked weight changes, Hematologic/Lymphatic: Negative for swollen nodes, abnormal bleeding, and unusual bruising, 12:14 Abdomen/GI: Positive for abdominal pain, of the right lower quadrant and left lower quadrant, 12:14 : Positive for penile pain, testicular pain of the groin, Exam: 12:14 Constitutional: This is a well developed, well nourished patient who is awake, alert, ana paula and in no acute distress. Head/Face: Normocephalic, atraumatic. Eyes: Pupils equal round and reactive to light, extra-ocular motions intact. Lids and lashes normal. Conjunctiva and sclera are non-icteric and not injected. Cornea within normal limits. Periorbital areas with no swelling, redness, or edema. ENT: Nares patent. No nasal discharge, no septal abnormalities noted. Tympanic membranes are normal and external auditory canals are clear. Oropharynx with no redness, swelling, or masses, exudates, or evidence of obstruction, uvula midline. Mucous membranes moist. Neck: Trachea midline, no thyromegaly or masses palpated, and no cervical lymphadenopathy. Supple, full range of motion without nuchal rigidity, or vertebral point tenderness. No Meningismus. Chest/axilla: Normal chest wall appearance and motion. Nontender with no deformity. No lesions are appreciated. Cardiovascular: Regular rate and rhythm with a normal S1 and S2. No gallops, murmurs, or rubs. Normal PMI, no JVD. No pulse deficits. Respiratory: Lungs have equal breath sounds bilaterally, clear to auscultation and percussion. No rales, rhonchi or wheezes noted. No increased work of breathing, no retractions or nasal flaring. Abdomen/GI: Soft, non-tender, with normal bowel sounds. No distension or tympany. No guarding or rebound. No evidence of tenderness throughout. Back: No spinal tenderness. No costovertebral tenderness. Full range of motion. Skin: Warm, dry with normal turgor. Normal color with no rashes, no lesions, and no evidence of cellulitis. MS/ Extremity: Pulses equal, no cyanosis. Neurovascular intact. Full, normal range of motion. Neuro: Awake and alert, GCS 15, oriented to person, place, time, and situation. Cranial nerves II-XII grossly intact. Motor strength 5/5 in all extremities. Sensory grossly intact. Cerebellar exam normal. Normal gait. Psych: Awake, alert, with orientation to person, place and time. Behavior, mood, and affect are within normal limits. 12:14 : CVA tenderness, is absent, Male external genitalia: swelling, tenderness, of the shaft of penis and scrotum is noted, Bladder: is normal, 13:09 ECG was reviewed by the Attending Physician. [facility] Vital Signs: 11:10 BP 155 / 98; Pulse 76; Resp 16 S; Temp 97.5(TE); Pulse Ox 100% on R/A; Weight 63.5 kg aa5 (R); Height 5 ft. 5 in. (R); 12:37 BP 116 / 77; Pulse 70; Resp 16; Pulse Ox 100% on R/A; db 13:00 BP 130 / 84; Pulse 82; Resp 16; Pulse Ox 100% on R/A; db 14:00 BP 134 / 82; Pulse 73; Resp 16; Pulse Ox 100% on R/A; db 11:10 Body Mass Index 23.30 (63.50 kg, 165.1 cm) aa5 MDM: 10:58 Patient medically screened. [facility] 12:16 Differential diagnosis: nonspecific abdominal pain, UTI, urethritis, bowel obstruction, ana paula diverticulitis, non-specific abd pain, pancreatitis, Pyelonephritis, urinary tract infection. Data reviewed: vital signs, nurses notes, lab test result(s), EKG, radiologic studies, CT scan, plain films, ultrasound. Consideration of Admission/Observation Escalation of care including admission/observation considered. I considered the following discharge prescriptions or medication management in the emergency department Medications were administered in the Emergency Department. See MAR. Independent interpretation of the following test(s) in the Emergency Department EKG: See my EKG interpretation above. Test considered but Not performed: MRI: no abd mri. Historians other than the Patient: Law enforcement: pt informed. pt is wew. Care significantly affected by the following chronic conditions: right hip problem. 04/09 11:12 Order name: Basic Metabolic Panel; Complete Time: 12:43 [facility] 04/09 11:12 Order name: CBC with Diff; Complete Time: 12:43 [facility] 04/09 11:12 Order name: LFT's; Complete Time: 12:43 [facility] 04/09 11:12 Order name: Magnesium; Complete Time: 12:43 [facility] 04/09 11:12 Order name: NT PRO-BNP; Complete Time: 12:43 [facility] 04/09 11:12 Order name: PT-INR; Complete Time: 12:43 [facility] 04/09 11:12 Order name: Troponin HS; Complete Time: 12:43 [facility] 04/09 11:12 Order name: Lipase; Complete Time: 12:43 [facility] 04/09 11:12 Order name: Urinalysis w/ reflexes; Complete Time: 11:46 [facility] 04/09 11:47 Order name: Urine Culture [facility] 04/09 11:12 Order name: XRAY Chest (1 view); Complete Time: 12:43 [facility] 04/09 11:12 Order name: Scrotum Testicles US; Complete Time: 12:43 [facility] 04/09 11:46 Order name: CT Abd/Pelvis - IV Contrast Only; Complete Time: 13:49 [facility] 04/09 11:12 Order name: EKG; Complete Time: 11:12 [facility] 04/09 11:12 Order name: Cardiac monitoring; Complete Time: 11:58 [facility] 04/09 11:12 Order name: EKG - Nurse/Tech; Complete Time: 11:52 [facility] 04/09 11:12 Order name: IV Saline Lock; Complete Time: 11:52 [facility] 04/09 11:12 Order name: Labs collected and sent; Complete Time: 11:58 [facility] 04/09 11:12 Order name: O2 Per Protocol; Complete Time: 11:52 [facility] 04/09 11:12 Order name: O2 Sat Monitoring; Complete Time: 11:58 [facility] EC:09 Rate is 68 beats/min. Rhythm is regular. QRS [place] is Normal. OR interval is normal. QRS ana paula interval is normal. QT interval is normal. No Q waves. T waves are Normal. No ST changes noted. Clinical impression: NSR w/ Non-specific ST/T Changes and No evidence of ischemia. Interpreted by me. Reviewed by me. Administered Medications: 12:04 Drug: morphine IVP or IV 4 mg IVP once over 4 mins {Note: Pain 4/10 RASS 0.} Route: ll1 IVP; Infused Over: 4 mins; Site: left forearm; 13:33 Follow up: Response: No adverse reaction db 12:04 Drug: Ondansetron IVP 4 mg IVP once; over 2 minutes Route: IVP; Site: left forearm; ll1 13:33 Follow up: Response: No adverse reaction db 12:04 Drug: levofloxacin IVPB 500 mg 100 ml IVPB once over 60 mins Volume: 100 ml; Route: ll1 IVPB; Infused Over: 60 mins; Site: left forearm; 13:05 Follow up: Response: No adverse reaction; IV Status: Completed infusion; IV Intake: db 100ml 13:27 Drug: Rocephin IV 1 grams IV at per protocol once; Given slow IV push per pharmacy db instructions Route: IV; Rate: per protocol; Site: left antecubital; 13:45 Follow up: Response: No adverse reaction; IV Status: Completed infusion; IV Intake: 50mldb 13:53 CANCELLED (Duplicate Order): trimethoprim-sulfamethoxazole(160 mg-800 mg (ds) 1 tablet ana paula PO once 13:56 Drug: AZITHromycin PO 1 grams PO once Route: PO; db 14:11 Follow up: Response: No adverse reaction db Disposition Summary: 04/09/23 14:01 Discharge Ordered Notes: Location: Home ana paula Problem: new ana paula Symptoms: have improved ana paula Condition: Stable ana paula Diagnosis - Epididymo-orchitis ana paula - Hydrocele, unspecified ana paula - Edema, unspecified ana paula - UTI/ Urinary tract infection, site not specified ana paula Followup: ana paula - With: Private Physician - When: 2 - 3 days - Reason: Recheck today's complaints, Continuance of care, Re-evaluation by your physician Followup: ana paula - With: Yonathan Storey MD - When: 2 - 3 days - Reason: Recheck today's complaints, Continuance of care, Re-evaluation by your physician Discharge Instructions: - Discharge Summary Sheet ana paula - Edema ana paula - Epididymitis ana paula - Orchitis ana paula - Testicular Self-Exam ana paula - Urinary Tract Infection, Adult ana paula - Edema, [id number] ana paula - Scrotal Swelling ana paula - Hydrocele, Adult ana paula - Testicular Self-Exam, [id number] [facility] Forms: - Medication Reconciliation Form [facility] - Thank You Letter [facility] - Antibiotic Education [facility] - Prescription Opioid Use [facility] - Patient Portal Instructions [facility] - Leadership Thank You Letter [facility] Prescriptions: - acetaminophen-codeine 300-30 mg Oral tablet - take 2 tablet ORAL route every 6 hours; 20 tablet; Refills: 0, Product ana paula Selection Permitted - Ibuprofen 600 mg Oral tablet - take 1 tablet ORAL route every 6 hours As needed take with food; 20 tablet; [facility] Refills: 0, Product Selection Permitted - Bactrim DS 800-160 mg Oral Tablet - take 1 tablet ORAL route every 12 hours for 10 days; 20 tablet; Refills: 0, ana paula Product Selection Permitted - levofloxacin 500 mg Oral tablet - take 1 tablet ORAL route once daily for 10 days; 10 tablet; Refills: 0, Product ana paula Selection Permitted Signatures: Dispatcher [employer] Wilfrid Soto MD MD cha Calderon, Audri RN RN aa5 Jacey Correia RN RN ll1 Kinsey Snyder RN RN db Corrections: (The following items were deleted from the chart) 13:53 13:52 Trimethoprim-Sulfamethoxazole PO (160 mg-800 mg (DS) 1 tablet PO once ordered. pura
[2023-04-09] MEDS ORDERED: AZITHROMYCIN 250 MG TAB ONE (14:13)
[2023-04-09 14:39] VITALS: TEMP 97.5; O2SAT 100
[2023-04-09 14:56] VITALS: BP 134/82
--- NOTE | 2023-04-10 15:16 | EKG ---
Test Date: 2023-04-09 Test Time: 11:48:39 [employer] Buyer: DIXIE MEASUREMENT RESULTS: Intervals: Rate: 68 OR: 130 QRSD: 86 QT: 378 QTc: 401 [place]: P: 85 OR: 130 QRS: 91 T: 66 INTERPRETIVE STATEMENTS: Normal sinus rhythm Normal ECG Compared to ECG 10/13/2019 14:34:28 Sinus tachycardia no longer present Electronically Signed On 04-10-23 15:11:41 QUARTER FOLDER by Jeremías Del Real
== END 2023-04-09 14:24 | disposition home or self-care (01) ==
LOC: ER 10:54
DX: N45.3 Epididymo-orchitis (principal); N43.3 Hydrocele, unspecified; N39.0 Urinary tract infection, site not specified; R60.9 Edema, unspecified; Z72.0 Tobacco use
CPT/HCPCS: 93005; 87088; 85025; 81001; 87086; 80048; 36415; 83735; 85610; 80076; 84484; 83690; 83880; 74177; 71045; 76870; 99284; Q9967; J2405; J0696